=== PATIENT | male | born 2000 | race Caucasian/White ===

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

== ENCOUNTER → 2020-04-17 | Outpatient (REF) | payer OTHER ==
[2020-04-17 15:34] LABS: HEMATOCRIT 45.2 % (42.0-52.0); HEMOGLOBIN 14.8 g/dl (13.5-17.5); MEAN CORPUSCULAR HEMOGLOBIN 28.3 pg (27.0-33.0); MEAN CORPUSCULAR HGB CONC 32.7 g/dl (32.0-36.5); MEAN CORPUSCULAR VOLUME 86.4 fl (80.0-96.0); PLATELET COUNT, AUTOMATED 212 10^3/uL (150-450); RED BLOOD COUNT 5.23 10^6/uL (4.30-6.10)
[2020-04-17 16:12] LABS: ALBUMIN 4.9 GM/DL (3.2-5.2); ALT/SGPT 22 U/L (12-78); BILIRUBIN,TOTAL 0.6 MG/DL (0.2-1.0); BLOOD UREA NITROGEN 8 MG/DL (7-18); CALCIUM LEVEL 9.9 MG/DL (8.5-10.1); CARBON DIOXIDE LEVEL 29 MEQ/L (21-32); CHLORIDE LEVEL 105 MEQ/L (98-107); CREATININE FOR GFR 0.97 MG/DL (0.70-1.30); FOLATE 13.1 NG/ML; FREE T4 1.36 NG/DL (0.78-1.33); GLUCOSE, FASTING 118 MG/DL (70-100); POTASSIUM SERUM 4.2 MEQ/L (3.5-5.1); SODIUM LEVEL 139 MEQ/L (136-145); THYROID STIMULATING HORMONE 0.952 uIU/ML (0.463-3.98); TOTAL 25(OH) VITAMIN D 18.2 NG/ML (30.0-100.0); TOTAL PROTEIN 8.3 GM/DL (6.4-8.2); VITAMIN B12 LEVEL 347 PG/ML
== END ==
LOC: M SFHCPLAZ 12:50
PROVIDERS: ATTEND Nurse Practitioner Family
DX: R63.6 Underweight (principal); F41.1 Generalized anxiety disorder

== ENCOUNTER 2020-06-14 12:33 | Emergency (ER) | payer OTHER ==
[~2020-06-14] VITALS: Ht 180.3 cm; Wt 53.1 kg
[2020-06-14] MEDS ORDERED: ONDA8TAB8 (12:41)
[2020-06-14] MEDS ORDERED: ZOLO50TA (12:41)
[2020-06-14 13:28] LABS: BASO % 0.4 % (0.0-1.0); EOS % 0.2 % (0.0-3.0); HEMATOCRIT 48.4 % (42.0-52.0); HEMOGLOBIN 17.1 g/dl (13.5-17.5); LYMPH # 1.9 10^3/uL (1.5-5.0); MEAN CORPUSCULAR HEMOGLOBIN 29.8 pg (27.0-33.0); MEAN CORPUSCULAR HGB CONC 35.3 g/dl (32.0-36.5); MEAN CORPUSCULAR VOLUME 84.5 fl (80.0-96.0); MONO # 0.7 10^3/uL (0.0-0.8); MONO % 8.2 % (2.0-8.0); NEUTROPHILS # 5.4 10^3/uL (1.5-8.5); NEUTROPHILS % 66.8 % (36.0-66.0); PLATELET COUNT, AUTOMATED 247 10^3/uL (150-450); RED BLOOD COUNT 5.73 10^6/uL (4.30-6.10); WHITE BLOOD COUNT 8.1 10^3/uL (4.0-10.0)
[2020-06-14] MEDS ORDERED: NS 1,000 ML IV ONE (13:35)
[2020-06-14] MEDS ORDERED: PANTOPRAZOLE 40MG VIAL (C9113 PER 1) IV ONE (13:35)
[2020-06-14] MEDS ORDERED: ONDANSETRON 4MG/2ML VIAL IV ONE (13:35)
[2020-06-14 13:53] LABS: AMPHETAMINES LEVEL URINE NEGATIVE (NEGATIVE); BARBITURATES URINE NEGATIVE (NEGATIVE); BENZODIAZEPINES URINE NEGATIVE (NEGATIVE); CANNABINOIDS URINE POSITIVE (NEGATIVE); COCAINE METABOLITE URINE NEGATIVE (NEGATIVE); METHADONE URINE NEGATIVE (NEGATIVE); OPIATES URINE NEGATIVE (NEGATIVE); PHENCYCLIDINE URINE NEGATIVE (NEGATIVE)
[2020-06-14 13:55] LABS: ALBUMIN 5.3 GM/DL (3.2-5.2); ALT/SGPT 34 U/L (12-78); BILIRUBIN,DIRECT 0.3 MG/DL (0.0-0.2); BLOOD UREA NITROGEN 11 MG/DL (7-18); CALCIUM LEVEL 10.1 MG/DL (8.5-10.1); CARBON DIOXIDE LEVEL 33 MEQ/L (21-32); CHLORIDE LEVEL 93 MEQ/L (98-107); CREATININE FOR GFR 1.09 MG/DL (0.70-1.30); GLUCOSE, FASTING 101 MG/DL (70-100); LIPASE 104 U/L (73-393); POTASSIUM SERUM 3.5 MEQ/L (3.5-5.1); SODIUM LEVEL 135 MEQ/L (136-145); TOTAL PROTEIN 9.5 GM/DL (6.4-8.2)
--- NOTE | 2020-06-14 14:03 | REP ---
INDICATION: abd pain COMPARISON: None TECHNIQUE: Axial noncontrast images from the lung bases to the pubic symphysis with coronal and sagittal reformations. Oral contrast administered prior to imaging. This CT examination was performed using the following dose reduction techniques: Automated exposure control, adjustment of mA and/or kv according to the patient's size, and use of iterative reconstruction technique. FINDINGS: Lung bases are clear. Visualized heart and pericardium normal. Liver, spleen, pancreas, gallbladder, bilateral adrenal glands and kidneys are normal. The enteric system is unremarkable and without obstruction or obvious acute inflammatory process. Normal terminal ileum and appendix identified in the right lower quadrant. Pelvis demonstrates normal bladder and age-appropriate uterus/adnexa. No ascites. No free air. No adenopathy. No focal inflammatory stranding. Abdominal aorta without aneurysm. Musculoskeletal structures are intact and without acute osseous abnormality. IMPRESSION: No acute abdominopelvic pathology appreciated. <Electronically signed by Twan Hutton > 06/14/20 1400
[2020-06-14] MEDS ORDERED: DOXY100C37 PO (14:47)
[2020-06-14] MEDS ORDERED: ZOFR4TAB16 PO (14:47)
[2020-06-14] MEDS ORDERED: cefTRIAXone 500MG VIAL (J0696 PER 250MG) IM ONE (14:50)
[2020-06-14] MEDS ORDERED: LIDOCAINE 1% SDV 5ML VIAL DILUENT ONE (14:50)
[2020-06-14 15:28] VITALS: BP 131/65
== END 2020-06-14 15:57 | disposition home or self-care (01) ==
LOC: M ED 12:33
DX: N39.0 Urinary tract infection, site not specified (principal); R11.2 Nausea with vomiting, unspecified; I51.9 Heart disease, unspecified; F19.10 Other psychoactive substance abuse, uncomplicated
CPT/HCPCS: 36415; 74176; 80048; 80076; 80307; 81001; 83690; 85025; 87086; 96361; 96372; 96374; 96375; 99284; C9113; J0696; J2405

== ENCOUNTER 2022-02-15 10:32 | Emergency (ER) | payer OTHER, SELFPAY ==
[~2022-02-15] VITALS: Ht 180.3 cm; Wt 52.5 kg
[2022-02-15 10:32] VITALS: BP 140/82
[~2022-02-15 10:32] MED LIST changes: +DOXY-443 PO; +ONDA8TAB8; +ZOFR4TAB16 PO; +ZOLO50TA
== END 2022-02-15 13:10 | disposition left against medical advice (07) ==
LOC: M ED 10:32
DX: Z53.21 Procedure and treatment not carried out due to patient leaving prior to being seen by health care provider (principal)

== ENCOUNTER 2022-11-05 16:18 | Emergency (ER) | payer OTHER, SELFPAY ==
[~2022-11-05] VITALS: Ht 180.3 cm; Wt 55.4 kg
[2022-11-05] MEDS ORDERED: LEXA1TAB (16:29)
[2022-11-05] MEDS ORDERED: OMEP-173 (16:29)
[2022-11-05] MEDS ORDERED: HYDR-3363 (16:29)
[2022-11-05 17:37] LABS: BASO % 0.3 % (0.0-1.0); HEMATOCRIT 49.3 % (42.0-52.0); HEMOGLOBIN 16.3 g/dl (13.5-17.5); LYMPH # 1.1 10^3/uL (1.5-5.0); LYMPH % 10.1 % (24.0-44.0); MEAN CORPUSCULAR HEMOGLOBIN 28.4 pg (27.0-33.0); MEAN CORPUSCULAR HGB CONC 33.1 g/dl (32.0-36.5); MEAN CORPUSCULAR VOLUME 85.9 fl (80.0-96.0); MONO % 8.6 % (2.0-8.0); NEUTROPHILS # 8.9 10^3/uL (1.5-8.5); NEUTROPHILS % 80.5 % (36.0-66.0); PLATELET COUNT, AUTOMATED 237 10^3/uL (150-450); RED BLOOD COUNT 5.74 10^6/uL (4.30-6.10)
[2022-11-05] MEDS ORDERED: FAMOTIDINE IV BAG 20 MG in IV 1 EA IV ONE (17:40)
[2022-11-05] MEDS ORDERED: ONDANSETRON 4MG 2ML VIAL IV ONE (17:40)
[2022-11-05 18:06] LABS: ALBUMIN 5.1 G/DL (3.2-5.2); BILIRUBIN,DIRECT 0.3 MG/DL (<0.4); BILIRUBIN,TOTAL 1.1 MG/DL (0.3-1.2); TOTAL PROTEIN 8.8 G/DL (5.7-8.2)
[2022-11-05 19:42] LABS: AMPHETAMINES LEVEL URINE NEGATIVE (NEGATIVE); BARBITURATES URINE NEGATIVE (NEGATIVE); BENZODIAZEPINES URINE NEGATIVE (NEGATIVE); COCAINE METABOLITE URINE NEGATIVE (NEGATIVE)
[2022-11-05 19:43] LABS: METHADONE URINE NEGATIVE (NEGATIVE); OPIATES URINE NEGATIVE (NEGATIVE); PHENCYCLIDINE URINE NEGATIVE (NEGATIVE)
[2022-11-05 19:45] LABS: CANNABINOIDS URINE POSITIVE (NEGATIVE)
[2022-11-05] MEDS ORDERED: REGL10TA6 PO (20:16)
[2022-11-05 20:38] VITALS: BP 126/87; TEMP 98.7; O2SAT 99
== END 2022-11-05 20:39 | disposition home or self-care (01) ==
LOC: M ED 16:18
DX: R11.2 Nausea with vomiting, unspecified (principal); I45.10 Unspecified right bundle-branch block; K21.9 Gastro-esophageal reflux disease without esophagitis; Z79.83 Long term (current) use of bisphosphonates; Z79.811 Long term (current) use of aromatase inhibitors; Z79.899 Other long term (current) drug therapy
CPT/HCPCS: 80047; 80076; 80307; 81001; 83690; 85025; 93005; 96365; 96375; 99284; J2405; S0028

== ENCOUNTER 2022-12-02 13:12 | Emergency (ER) | payer OTHER ==
[~2022-12-02] VITALS: Ht 180.3 cm; Wt 54.8 kg
[~2022-12-02 13:12] MED LIST changes: +HYDR-3363; +LEXA1TAB; +OMEP-173; +REGL10TA6 PO
[2022-12-02 13:55] LABS: BASO % 0.2 % (0.0-1.0); HEMATOCRIT 48.8 % (42.0-52.0); LYMPH # 1.2 10^3/uL (1.5-5.0); LYMPH % 9.3 % (24.0-44.0); MEAN CORPUSCULAR HEMOGLOBIN 29.5 pg (27.0-33.0); MEAN CORPUSCULAR HGB CONC 34.8 g/dl (32.0-36.5); MEAN CORPUSCULAR VOLUME 84.6 fl (80.0-96.0); MONO # 1.1 10^3/uL (0.0-0.8); MONO % 8.3 % (2.0-8.0); NEUTROPHILS # 10.6 10^3/uL (1.5-8.5); NEUTROPHILS % 81.9 % (36.0-66.0); PLATELET COUNT, AUTOMATED 283 10^3/uL (150-450); RED BLOOD COUNT 5.77 10^6/uL (4.30-6.10)
[2022-12-02 14:18] LABS: LIPASE 28 U/L (12-53)
[2022-12-02 14:20] LABS: ALBUMIN 5.5 G/DL (3.2-5.2); ALKALINE PHOSPHATASE 74 U/L (46-116); ALT/SGPT 25 U/L (7.0-40); AST/SGOT 23 U/L (<34); BILIRUBIN,DIRECT 0.3 MG/DL (<0.4); BILIRUBIN,TOTAL 0.8 MG/DL (0.3-1.2); BLOOD UREA NITROGEN 26 MG/DL (9-23); CALCIUM LEVEL 11.1 MG/DL (8.5-10.1); CARBON DIOXIDE LEVEL 34 MMOL/L (20-31); CHLORIDE LEVEL 95 MMOL/L (98-107); CREATININE FOR GFR 0.87 MG/DL (0.70-1.30); GLOMERULAR FILTRATION RATE > 60.0 (>60); GLUCOSE, FASTING 119 MG/DL (60-100); POTASSIUM SERUM 4.4 MMOL/L (3.5-5.1); SODIUM LEVEL 139 MMOL/L (136-145); TOTAL PROTEIN 9.4 G/DL (5.7-8.2)
[2022-12-02] MEDS ORDERED: NS 1,000 ML IV ONE (15:45)
[2022-12-02] MEDS ORDERED: KETOROLAC 30 MG/ML 1ML VIAL IV ONE (15:45)
[2022-12-02] MEDS ORDERED: METOCLOPRAMIDE INJ 10MG/2ML VIAL IV ONE (15:45)
[2022-12-02] MEDS ORDERED: ISOVUE-370 76% 100ML VIAL As Ordered ONE (16:01)
[2022-12-02] MEDS: GASTROGRAFIN SOLUTION 30ML PO SCH ×2 (16:21→17:09)
[2022-12-02 16:27] LABS: PTH INTACT 33.8 PG/ML (18.5-88.0)
[2022-12-02 16:29] LABS: FREE T4 1.29 NG/DL (0.89-1.76); THYROID STIMULATING HORMONE 1.067 uIU/ML (0.55-4.78)
[2022-12-02] MEDS ORDERED: diphenhydrAMINE 50MG/ML VIAL IV STA (16:40)
[2022-12-02] MEDS ORDERED: REGL5TAB2 PO (18:36)
[2022-12-02 18:43] VITALS: BP 128/75; TEMP 97.6; O2SAT 99
== END 2022-12-02 18:50 | disposition home or self-care (01) ==
LOC: M ED 13:12
DX: R11.2 Nausea with vomiting, unspecified (principal); Z79.899 Other long term (current) drug therapy; F12.99 Cannabis use, unspecified with unspecified cannabis-induced disorder
CPT/HCPCS: 74177; 80048; 80076; 83690; 83970; 84439; 84443; 85025; 96361; 96374; 96375; 99284; J1200; J1885; J2765; Q9963; Q9967

== ENCOUNTER 2023-07-12 20:25 | Emergency (ER) | payer OTHER ==
[~2023-07-12] VITALS: Ht 180.3 cm; Wt 60.3 kg
[~2023-07-12 20:25] MED LIST changes: +DOXY-323 PO; -DOXY-443 PO; +REGL5TAB2 PO
[2023-07-12 21:14] LABS: BASO % 0.1 % (0.0-1.0); HEMOGLOBIN 16.5 g/dl (13.5-17.5); LYMPH # 1.2 10^3/uL (1.5-5.0); LYMPH % 7.5 % (24.0-44.0); MEAN CORPUSCULAR HEMOGLOBIN 29.4 pg (27.0-33.0); MEAN CORPUSCULAR HGB CONC 35.9 g/dl (32.0-36.5); MONO # 1.9 10^3/uL (0.0-0.8); MONO % 11.8 % (2.0-8.0); NEUTROPHILS % 80.3 % (36.0-66.0); PLATELET COUNT, AUTOMATED 260 10^3/uL (150-450); RED BLOOD COUNT 5.61 10^6/uL (4.30-6.10); WHITE BLOOD COUNT 16.2 10^3/uL (4.0-10.0)
[2023-07-12] MEDS: NS 1,000 ML IV ONE (21:26)
[2023-07-12] MEDS: ONDANSETRON 4MG 2ML VIAL IV ONE (21:26)
[2023-07-12 21:33] LABS: VENOUS BASE EXCESS 9.3 (-2.0-2.0); VENOUS HCO3 31.6 MMOL/L (23.0-27.0); VENOUS O2 SATURATION 53.4 % (60.0-80.0); VENOUS PARTIAL PRESSURE CO2 35.4 mmHg (38.0-50.0); VENOUS PARTIAL PRESSURE O2 26.8 mmHg (30.0-50.0); VENOUS PH 7.569 UNITS (7.330-7.430); VENOUS STANDARD HCO3 31.6 MMOL/L; VENOUS TOTAL CO2 32.7 MMOL/L (24.0-28.0)
[2023-07-12 21:38] LABS: LIPASE 36 U/L (12-53)
[2023-07-12 21:40] LABS: ALBUMIN 5.9 G/DL (3.2-5.2); ALKALINE PHOSPHATASE 100 U/L (46-116); ALT/SGPT 22 U/L (7.0-40); AST/SGOT 21 U/L (<34); BILIRUBIN,DIRECT 0.3 MG/DL (<0.4); BLOOD UREA NITROGEN 38 MG/DL (9-23); CALCIUM LEVEL 10.5 MG/DL (8.5-10.1); CARBON DIOXIDE LEVEL 34 MMOL/L (20-31); CHLORIDE LEVEL 89 MMOL/L (98-107); CREATININE FOR GFR 1.32 MG/DL (0.70-1.30); GLOMERULAR FILTRATION RATE > 60.0 (>60); GLUCOSE, FASTING 111 MG/DL (60-100); SODIUM LEVEL 139 MMOL/L (136-145); TOTAL PROTEIN 9.2 G/DL (5.7-8.2)
[2023-07-12] MEDS: KETOROLAC 30 MG/ML 1ML VIAL IV ONE (22:40)
[2023-07-12] MEDS: NS 800 ML IV ONE (22:40)
[2023-07-12 23:35] LABS: MAGNESIUM LEVEL 2.3 MG/DL (1.8-2.4)
[2023-07-13] MEDS: METOCLOPRAMIDE INJ 10MG/2ML VIAL IV ONE (00:20)
[2023-07-13] MEDS: POTASSIUM CHLORIDE 10MEQ SR TABLET PO ONE (00:21)
[2023-07-13] MEDS ORDERED: ISOVUE-370 76% 100ML VIAL As Ordered ONE (01:11)
[2023-07-13] MEDS: HALOPERIDOL LACTATE 5MG/ML VIAL IV ONE (01:27)
[2023-07-13] MEDS: LORazepam 2 MG/ML 1ML VIAL IV STA (01:28)
[2023-07-13 02:37] VITALS: BP 106/55; TEMP 98.9; O2SAT 96
[2023-07-13 03:31] LABS: AMPHETAMINES LEVEL URINE NEGATIVE (NEGATIVE); BARBITURATES URINE NEGATIVE (NEGATIVE); BENZODIAZEPINES URINE NEGATIVE (NEGATIVE); COCAINE METABOLITE URINE NEGATIVE (NEGATIVE); METHADONE URINE NEGATIVE (NEGATIVE); OPIATES URINE NEGATIVE (NEGATIVE); PHENCYCLIDINE URINE NEGATIVE (NEGATIVE)
[2023-07-13 03:39] LABS: CANNABINOIDS URINE POSITIVE (NEGATIVE)
[2023-07-13] MEDS ORDERED: ONDA4TAB6 PO (03:54)
== END 2023-07-13 04:02 | disposition home or self-care (01) ==
LOC: M ED 20:25
DX: F12.188 Cannabis abuse with other cannabis-induced disorder (principal); E87.6 Hypokalemia; N17.9 Acute kidney failure, unspecified; Z53.9 Procedure and treatment not carried out, unspecified reason; K21.9 Gastro-esophageal reflux disease without esophagitis; Z79.899 Other long term (current) drug therapy
CPT/HCPCS: 74177; 80048; 80076; 80307; 81001; 82803; 83605; 83690; 83735; 85025; 87040; 87486; 87581; 87633; 87798; 93005; 96361; 96374; 96375; 99284; J1630; J1885; J2060; J2405; J2765; Q9967

== ENCOUNTER 2023-07-22 17:04 | Emergency (ER) | payer OTHER ==
[~2023-07-22] VITALS: Ht 180.3 cm; Wt 58.3 kg
[~2023-07-22 17:04] MED LIST changes: +ONDA-282 PO; +ONDA-284; -ONDA8TAB8
[2023-07-22 17:05] VITALS: TEMP 98
[2023-07-22] MEDS ORDERED: BUPR-71 (17:13)
[2023-07-22] MEDS ORDERED: promethazine (17:13)
[2023-07-22 18:23] LABS: BASO % 0.6 % (0.0-1.0); EOS % 0.5 % (0.0-3.0); HEMATOCRIT 45.2 % (42.0-52.0); HEMOGLOBIN 16.1 g/dl (13.5-17.5); LYMPH # 2.1 10^3/uL (1.5-5.0); LYMPH % 32.9 % (24.0-44.0); MEAN CORPUSCULAR HGB CONC 35.6 g/dl (32.0-36.5); MEAN CORPUSCULAR VOLUME 81.3 fl (80.0-96.0); MONO # 0.8 10^3/uL (0.0-0.8); MONO % 12.8 % (2.0-8.0); NEUTROPHILS # 3.4 10^3/uL (1.5-8.5); PLATELET COUNT, AUTOMATED 266 10^3/uL (150-450); RED BLOOD COUNT 5.56 10^6/uL (4.30-6.10); WHITE BLOOD COUNT 6.3 10^3/uL (4.0-10.0)
[2023-07-22 18:36] LABS: BILIRUBIN,DIRECT 0.2 MG/DL (<0.4); BILIRUBIN,TOTAL 0.7 MG/DL (0.3-1.2); TOTAL PROTEIN 7.9 G/DL (5.7-8.2)
[2023-07-22] MEDS: HALOPERIDOL LACTATE 5MG/ML VIAL IV ONE (19:07)
[2023-07-22] MEDS: NS 1,000 ML IV ONE (19:07)
[2023-07-22] MEDS: busPIRone 5 MG TAB PO ONE (19:58)
[2023-07-22] MEDS: POTASSIUM CHLORIDE 10MEQ SR TABLET PO ONE (20:31)
[2023-07-22 20:44] VITALS: BP 138/76; O2SAT 100
== END 2023-07-22 20:47 | disposition home or self-care (01) ==
LOC: M ED 17:04
DX: R11.2 Nausea with vomiting, unspecified (principal); F41.9 Anxiety disorder, unspecified; E87.6 Hypokalemia
CPT/HCPCS: 70450; 80047; 80076; 83690; 85025; 96361; 96374; 99283; J1630